=== PATIENT | female | born 1930 | race Caucasian/White ===

== ENCOUNTER 2017-02-18 09:58 | Emergency (ER) | payer MEDICARE ==
[2017-02-18 12:04] LABS: #Eosinphils 0.1 thou/uL (0.0-0.7); #Lymphocytes 1.4 thou/uL (1.20-3.40); #Monocytes 0.8 thou/uL (0.11-0.59); #Neutrophils 4.2 thou/uL (1.40-6.50); %Basophils 0.6 % (0.0-1.0); %Eosinophils 1.3 % (0.0-10.0); %Monocytes 12.9 % (0.0-10.0); Hematocrit 42.1 % (36.0-47.0); Mean Platelet Volume 7.6 fL (7.4-10.4); Red Blood Cell (RBC) Count 4.85 mill/uL (4.20-5.40); White Blood Cell (WBC) Count 6.5 thou/uL (4.8-10.8)
--- NOTE | 2017-02-18 12:21 | RAD ---
CHEST 2 VIEWS: Date: 02/18/17 HISTORY: Cough. FINDINGS: No comparison. The cardiac silhouette and pulmonary vasculature are unremarkable. Lungs are hyperinflated. Mediastin um is midline with aortic calcification. Calcified granulomata are consistent with healed granulomato us disease. There is no lobar consolidation or evidence of pneumothorax. Postoperative changes of the right shoulder are apparent. IMPRESSION: 1. COPD. 2. Atherosclerosis. POS: [facility]
[2017-02-18 12:22] LABS: ALT (SGPT) 8 U/L (8-55); AST (SGOT) 15 U/L (5-34); Alkaline Phosphatase 66 U/L (40-150); Anion Gap 11 mmol/L (10-20); BUN (Urea Nitrogen) 17 mg/dL (9.8-20.1); Bilirubin, Total 0.4 mg/dL (0.2-1.2); Calc. Creatinine Clearance 0 mL/min (70-130); Calcium 9.6 mg/dL (7.8-10.44); Carbon Dioxide 29 mmol/L (23-31); Chloride 106 mmol/L (98-107); Estimated GFR-MDRD 56; Globulin 2.8 g/dL (2.4-3.5); Protein, Total 6.4 g/dL (6.0-8.3)
[2017-02-18] MEDS ORDERED: predniSONE 20 MG TAB ONE (12:27)
[2017-02-18] MEDS ORDERED: HYDROcodone/Acetaminophen 5/325 mg Tablet ONE (13:19)
[2017-02-18 13:52] LABS: Bacteria/HPF None Seen HPF (None Seen); Hyaline Casts/LPF 0-3 HYALINE CAST LPF (0-3 Hyaline); WBC/HPF 0-3 HPF (0-3)
[2017-02-18 13:54] LABS: Bilirubin Negative (Negative); Blood, Urine Negative (Negative); Glucose, Urine (Dipstick) Negative (Negative); Ketone, Urine Negative (Negative); Nitrite Negative (Negative); Protein, Urine (Dipstick) Negative (Neg-Trace); Urobilinogen 0.2 mg/dL (0.2-1.0)
== END 2017-02-18 13:55 | disposition home or self-care (01) ==
LOC: ERS 09:58
DX: J44.1 Chronic obstructive pulmonary disease with (acute) exacerbation (principal); Z79.899 Other long term (current) drug therapy
CPT/HCPCS: 36415; 71020; 80053; 81003; 81015; 85025; 94640; J7506; J7620

== ENCOUNTER 2017-04-04 10:25 | Emergency (ER) | payer MEDICARE, OTHER ==
[2017-04-04 11:27] LABS: Hemoglobin 15.1 g/dL (12.0-16.0); Mean Corpuscular HGB CONC 32.5 g/dL (32.0-36.0); Mean Corpuscular Hemoglobin 28.5 pg (27.0-31.0); Mean Corpuscular Volume 87.7 fl (81.0-99.0); Mean Platelet Volume 7.9 fL (7.4-10.4); Platelet Count 153 thou/uL (130-400); RBC Distribution Width 12.9 % (11.5-14.5); Red Blood Cell (RBC) Count 5.28 mill/uL (4.20-5.40); White Blood Cell (WBC) Count 5.8 thou/uL (4.8-10.8)
[2017-04-04] MEDS ORDERED: methylPREDNISolone Sod Succ/PF 125 MG/2 ML VIAL ONE (11:28)
[2017-04-04 11:51] LABS: ALT (SGPT) 8 U/L (8-55); AST (SGOT) 14 U/L (5-34); Alkaline Phosphatase 67 U/L (40-150); Anion Gap 12 mmol/L (10-20); BUN (Urea Nitrogen) 15 mg/dL (9.8-20.1); Bilirubin, Total 0.4 mg/dL (0.2-1.2); CK (CPK) 39 U/L (29-168); Calc. Creatinine Clearance 0 mL/min (70-130); Calcium 9.4 mg/dL (7.8-10.44); Carbon Dioxide 31 mmol/L (23-31); Chloride 103 mmol/L (98-107); Estimated GFR-MDRD 57; Globulin 2.6 g/dL (2.4-3.5); Glucose 94 mg/dL (83-110); Potassium 3.6 mmol/L (3.5-5.1); Protein, Total 6.6 g/dL (6.0-8.3); Sodium 142 mmol/L (136-145)
[2017-04-04 11:54] LABS: Band 3 % (5-11); Eosinophils 2 % (0-10); Lymphocytes 15 % (21-51); MDiff Complete? YES; Monocytes 9 % (0-10); Neutrophil 69 % (42-75); PLT Morphology Comment Appears Adequate; RBC Morphology Normal; Reactive Lymphocytes 2 % (0-10)
[2017-04-04 11:55] LABS: CKMB 0.8 ng/mL (0-6.6); Troponin I Less than 0.010 ng/mL (< 0.028)
--- NOTE | 2017-04-04 12:10 | RAD ---
PORTABLE CHEST 1 VIEW: DATE: 04/04/17. TIME: 11:14 a.m. HISTORY: Chest pain, cough. FINDINGS: Comparison is made with the exam of 02/18/17. The heart size is normal. Changes of COPD are again seen. No lobar consolidation, pneumothoraces, o r pleural effusions are identified. There are postop changes in the right shoulder. IMPRESSION: No acute process. POS: [facility]
== END 2017-04-04 15:00 | disposition home or self-care (01) ==
LOC: ERS 10:25
DX: J44.1 Chronic obstructive pulmonary disease with (acute) exacerbation (principal); J11.1 Influenza due to unidentified influenza virus with other respiratory manifestations; F41.9 Anxiety disorder, unspecified; F32.9 Major depressive disorder, single episode, unspecified; Z87.891 Personal history of nicotine dependence; Z79.899 Other long term (current) drug therapy
CPT/HCPCS: 36415; 71045; 80053; 82553; 83605; 84484; 85025; 87040; 87804; 93005; 94760; 96374; J2930; J7620

== ENCOUNTER 2017-06-16 10:58 | Outpatient (CLI) | payer MEDICARE ==
--- NOTE | 2017-06-16 13:13 | RAD ---
TWO VIEWS STERNUM: DATE: 06/16/17. COMPARISON: None. HISTORY: Trauma, injury. FINDINGS: The sternum cannot be visualized on the lateral examination secondary to technical limitations. The anterior and posterior cortex is nonvisualized. Recommend repeat imaging. IMPRESSION: Technically suboptimal assessment of the sternum. Repeat imaging is required. POS: [facility]
== END 2017-06-16 10:59 | disposition home or self-care (01) ==
LOC: RAD-FRANK 10:58
PROVIDERS: ATTEND Internal Medicine
DX: S29.9XXA Unspecified injury of thorax, initial encounter (principal)
CPT/HCPCS: 71120

== ENCOUNTER 2017-06-21 13:57 | Outpatient (CLI) | payer MEDICARE, OTHER ==
--- NOTE | 2017-06-21 14:22 | RAD ---
TWO VIEWS CHEST: Date: 06-21-17 Comparison: 04-04-17 History: Chest pain. FINDINGS: There is anterior wedge compression fracture with moderate loss of vertebral body height anteriorly a t the L2 level, age indeterminate. Heart and mediastinal contours are grossly unremarkable. Calcified nodules are seen bilaterally suggesting prior granulomatous disease. No pneumothorax, pleural fluid, lobar consolidation or alveolar edema. There are post-operative anchors overlying the humeral head o n there right. IMPRESSION: Chronic findings as detailed above. No lobar consolidation or alveolar edema. POS: [facility]
== END 2017-06-21 13:58 | disposition home or self-care (01) ==
LOC: RAD-FRANK 13:57
PROVIDERS: ATTEND Nurse Practitioner Family
DX: R07.9 Chest pain, unspecified (principal)
CPT/HCPCS: 71046

== ENCOUNTER 2019-05-20 10:16 | Emergency (ER) | payer MEDICARE ==
--- NOTE | 2019-05-20 12:11 | RAD ---
EXAM: Single view of the chest HISTORY: Chest and back pain COMPARISON: 06/21/2017 FINDINGS: Single view of the chest shows a normal sized cardiomediastinal silhouette. Increased inte rstitial markings are present. There is a moderate right-sided pneumothorax. There is no evidence of consolidation, mass, or pleural effusion. Degenerative changes are seen in the spine and shoulders IMPRESSION: Moderate right pneumothorax. Dr. Nieves notified of findings at 12:09 PM on 05/20/2019
[2019-05-20] MEDS ORDERED: Morphine 4 MG/ML VIAL ONE (13:49)
== END 2019-05-20 16:57 ==
LOC: ERS 10:16
DX: J43.9 Emphysema, unspecified (principal); J93.9 Pneumothorax, unspecified; F41.9 Anxiety disorder, unspecified; F32.9 Major depressive disorder, single episode, unspecified; M81.0 Age-related osteoporosis without current pathological fracture; Z87.891 Personal history of nicotine dependence; Z79.899 Other long term (current) drug therapy; Z79.891 Long term (current) use of opiate analgesic; Z79.51 Long term (current) use of inhaled steroids
CPT/HCPCS: 71045; 96374; J2270